=== PATIENT | male | born 1990 | race Caucasian/White ===

== ENCOUNTER 2016-09-08 09:34 | Emergency (ER) | payer OTHER ==
[~2016-09-08] VITALS: Ht 185.4 cm; Wt 99.8 kg
[2016-09-08 09:39] VITALS: TEMP 36.5; Ht 185.4 cm; Wt 99.8 kg
[2016-09-08] MEDS ORDERED: TYLOTC500 PO (09:50)
[2016-09-08] MEDS ORDERED: ONDANSETRON INJ 2 MG/ML 2 ML VIAL IV STA (10:09)
[2016-09-08] MEDS ORDERED: SODIUM CHLORIDE 0.9% 1000ML 1,000 ML IV STA (10:09)
--- NOTE | 2016-09-08 10:14 | EMERGENCY ROOM VISIT NOTE ---
History Report prepared by Jovanny: Dante Drake Under the Supervision of: Dr. Edilberto Jerez D.O. First contact with patient: 09:52 Chief Complaint: RECTAL BLEEDING Stated Complaint: TINGLY, TUNNEL VISION, SPEAKING DIFFICULTIES, DIZZ Nursing Triage Summary: Pt to triage in , pt was able to walk to chair scale, denies weakness, c/o blood in stool, red in color, felt dizzy while having BM, got worse when he stood up. States he had abdominal pain prior to BM, denies pain at this time. History of Present Illness The patient is a 26 year old male who presents to the Emergency Room with complaints of an episode of rectal bleeding that occurred prior to arrival today. He says that he felt fine before going to the bathroom this morning other than a bit of tenseness in his chest. The patient proceeded to have a bowel movement, with blood in his stool. He then stood up, and got very lightheaded. He was numb in his arms and face. He had a dry mouth and also felt nauseous. The patient notes that walking was difficult. He says that it felt like when someone stands up too fast but longer. The patient states that his stomach has been a bit upset, and the bowel movement was large. He did not think there was a tear. He denies any leg pain or swelling, or any recent rectal trauma. He has no chronic medical problems and never had any surgeries. The patient says that he passed out once from dehydration from a hard football practice. He occasionally drinks alcohol and occasionally smokes. Source of History: patient Onset: Prior to arrival today Position: other (rectum) Quality: other (bleeding) Timing: other (episode) Associated Symptoms: + nausea, + numbness (arms/face) Note: Associated symptoms: Chest tenseness, lightheadedness, dry mouth, tunnel vision. Denies leg pain or swelling, or recent rectal trauma. Review of Systems See HPI for pertinent positives & negatives. A total of 10 systems reviewed and were otherwise negative. Past Medical & Surgical Medical Problems: (1) No chronic problems (2) Syncope Family History Cancer Heart disease Hypertension Lung disease Social History Smoking Status: Current Every Day Smoker Alcohol Use: occasionally Occupation Status: employed Current/Historical Medications Scheduled Acetaminophen (Tylenol), 500 MG PO UD Allergies Coded Allergies: No Known Allergies (Unverified , 09/08/16) Physical Exam Vital Signs Date Time Temp Pulse Resp B/P Pulse Ox O2 Delivery O2 Flow Rate FiO2 09/08/16 12:19 86 18 124/69 97 Room Air 09/08/16 11:04 98 Room Air 09/08/16 10:50 74 16 120/70 78 142/92 83 160/90 09/08/16 09:39 36.5 87 18 131/80 98 Room Air Physical Exam GENERAL: Patient is awake, alert, and in no acute distress. Patient is resting comfortably and showing no signs of anxiety EYES: The conjunctivae are clear. The pupils are round and reactive. EARS, NOSE, MOUTH AND THROAT: The nose is without any evidence of any deformity. Mucous membranes are dry tongue is midline NECK: The neck is nontender and supple. RESPIRATORY: Normal respiratory effort is noted there is no evidence of wheezing rhonchi or rales CARDIOVASCULAR: Regular rate and rhythm noted there no murmurs rubs or gallops normal S1 normal S2 GASTROINTESTINAL: The abdomen is soft. Bowel sounds are present in all quadrants. Abdomen is nontender. Rectal exam revealed brown stool heme negative , no obvious fissures or hemorrhoids which were bleeding. MUSCULOSKELETAL/EXTREMITIES: There is no evidence of gross deformity full range of motion is noted in the hips and shoulders SKIN: There is no obvious evidence of any rash. There are no petechiae, pallor or cyanosis noted. NEUROLOGIC: Patient is awake alert and oriented x3 strength is symmetric patellar reflexes are 2+ bilaterally Medical Decision & Procedures ER Provider Diagnostic Interpretation: X-ray results as stated below per interpretation by me and the radiologist. CHEST ONE VIEW PORTABLE CLINICAL HISTORY: EVALUATE ALTERED MENTAL STATUS/WEAKNESS dyspnea COMPARISON STUDY: None FINDINGS: The bones soft tissues and hemidiaphragms are normal. The cardiomediastinal silhouette is normal. The lungs are clear. The pulmonary vasculature is normal. IMPRESSION: Negative chest. Electronically signed by: Jose Lugo M.D. 09/08/2016 10:31 AM Dictated Date/Time: 09/08/2016 10:30 AM Laboratory Results 09/08/16 10:30 Red Blood Count 5.07, Mean Corpuscular Volume 90.3, Mean Corpuscular Hemoglobin 31.8, Mean Corpuscular Hemoglobin Concent 35.2, Mean Platelet Volume 10.4, Neutrophils (%) (Auto) 66.7, Lymphocytes (%) (Auto) 24.9, Monocytes (%) (Auto) 7.4, Eosinophils (%) (Auto) 0.6, Basophils (%) (Auto) 0.3, Neutrophils # (Auto) 4.57, Lymphocytes # (Auto) 1.71, Monocytes # (Auto) 0.51, Eosinophils # (Auto) 0.04, Basophils # (Auto) 0.02 09/08/16 10:30 Test 09/08/16 10:30 White Blood Count 6.86 K/uL (4.8-10.8) Red Blood Count 5.07 M/uL (4.7-6.1) Hemoglobin 16.1 g/dL (14.0-18.0) Hematocrit 45.8 % (42-52) Mean Corpuscular Volume 90.3 fL (80-100) Mean Corpuscular Hemoglobin 31.8 pg (25-34) Mean Corpuscular Hemoglobin Concent 35.2 g/dl (32-36) Platelet Count 263 K/uL (130-400) Mean Platelet Volume 10.4 fL (7.4-10.4) Neutrophils (%) (Auto) 66.7 % Lymphocytes (%) (Auto) 24.9 % Monocytes (%) (Auto) 7.4 % Eosinophils (%) (Auto) 0.6 % Basophils (%) (Auto) 0.3 % Neutrophils # (Auto) 4.57 K/uL (1.4-6.5) Lymphocytes # (Auto) 1.71 K/uL (1.2-3.4) Monocytes # (Auto) 0.51 K/uL (0.11-0.59) Eosinophils # (Auto) 0.04 K/uL (0-0.5) Basophils # (Auto) 0.02 K/uL (0-0.2) RDW Standard Deviation 41.4 fL (36.4-46.3) RDW Coefficient of Variation 12.6 % (11.5-14.5) Immature Granulocyte % (Auto) 0.1 % Immature Granulocyte # (Auto) 0.01 K/uL (0.00-0.02) Prothrombin Time 11.0 SECONDS (9.0-12.0) Prothromb Time International Ratio 1.0 (0.9-1.1) Activated Partial Thromboplast Time 30.9 SECONDS (21.0-31.0) Partial Thromboplastin Ratio 1.2 Anion Gap 7.0 mmol/L (3-11) Est Creatinine Clear Calc Drug Dose 157.3 ml/min Estimated GFR () 138.1 Estimated GFR (Non- 119.1 BUN/Creatinine Ratio 12.6 (10-20) Calcium Level 9.0 mg/dl (8.5-10.1) Magnesium Level 2.3 mg/dl (1.8-2.4) Total Bilirubin 0.7 mg/dl (0.2-1) Direct Bilirubin mg/dl (0-0.2) Aspartate Amino Transf (AST/SGOT) 12 U/L (15-37) Alanine Aminotransferase (ALT/SGPT) 24 U/L (12-78) Alkaline Phosphatase 68 U/L (45-117) Total Creatine Kinase 131 U/L (39-308) Creatine Kinase MB 1.2 ng/ml (0.5-3.6) Creatine Kinase MB Ratio 0.9 (0-3.0) Troponin I < 0.015 ng/ml (0-0.045) Total Protein 7.2 gm/dl (6.4-8.2) Albumin 4.3 gm/dl (3.4-5.0) Thyroid Stimulating Hormone (TSH) 0.892 uIu/ml (0.300-4.500) Chemistry Specimen Hemolysis Laboratory results per my review. Medications Administered Medications (Trade) Dose Ordered Sig/Kofi Route Start Time Stop Time Status Last Admin Dose Admin Sodium Chloride (Nss 1000ml) 1,000 ml @ 999 mls/hr Q1H1M STAT IV 09/08/16 10:09 09/08/16 11:09 DC 09/08/16 10:40 999 MLS/HR Ondansetron HCl (Zofran Inj) 4 mg NOW STAT IV 09/08/16 10:09 09/08/16 10:11 DC 09/08/16 10:48 4 MG ECG Indication: other (dizziness) Rate (beats per minute): 72 Rhythm: normal sinus Findings: no ectopy, other (incomplete RBBB, no acute ST segment abnormalities) Comparison ECG Date: no prior available ED Course 1001: The patient was evaluated in room A2. A complete history and physical examination were performed. 1009: Ordered Zofran Inj 4 mg IV, NSS 1000 ml @ 999 mls/hr IV. 1133: Upon reevaluation, the patient is resting comfortably. I discussed the results and treatment plan with him. He verbalized agreement of the treatment plan. He was discharged home. Medical Decision Differential diagnosis: Etiologies such as vasovagal event, infection, hypoglycemia, electrolyte abnormalities, cardiac sources, intracerebral event, toxicologic, neurologic, as well as others were entertained. Nursing notes reviewed. The patient is a 26-year-old male who presented to the emergency department after a near syncopal episode. The patient was having a rather large bowel movement and then noticed some blood in the toilet. He then started to have what was described as a near syncopal episode or he develop tunnel vision numbness across the arms and felt as though he might pass out. The patient's rectal exam did not reveal any definite source for the bleeding although he did have a small hemorrhoid which was not actively bleeding. His stool was heme- negative. The patient did not have any focal neurologic deficits. He had no meningismus. The patient had normal sounding heart tones to my auscultation. I discussed the patient's laboratory radiographic studies with him. He was treated with IV fluids in the emergency department. On subsequent reevaluation he was feeling much better. At this time I feel he may have had a vasovagal episode after seeing the rectal bleeding it may have been exacerbated by having the large bowel movement. He was encouraged to rest and avoid any strenuous activity. He was also encouraged to call his family doctor to schedule a follow- up appointment. I did recommend further studies such as an echocardiogram and a Holter monitor. He was also encouraged to start a [id number] stool softener such as Colace. He was also encouraged return to emergency department immediately if symptoms change worsen or the need arises. Impression Primary Impression: Near syncope Additional Impressions: Constipation Rectal bleeding Scribe Attestation The scribe's documentation has been prepared under my direction and personally reviewed by me in its entirety. I confirm that the note above accurately reflects all work, treatment, procedures, and medical decision making performed by me. Departure Information Dispostion Home / Self-Care Referrals No Doctor, Assigned (PCP) Forms HOME CARE DOCUMENTATION FORM, IMPORTANT VISIT INFORMATION, WORK / SCHOOL INSTRUCTIONS Patient Instructions Bleeding Rectal Evaluate Treat, ED Near Syncope Unkn, My [facility] Additional Instructions Call your family to schedule a follow-up appointment. Rest and avoid any strenuous activity. I would recommend further studies such as an echocardiogram or a Holter monitor to further evaluate the cause of urinary syncope. I would recommend starting an [id number] stool softener. Return to the emergency department immediately if symptoms change worsen or the need arises. Problem Qualifiers Additional Impressions: Constipation Constipation type: unspecified constipation type Qualified Codes: K59.00 - Constipation, unspecified
--- NOTE | 2016-09-08 10:34 | DIAGNOSTIC IMAGING REPORT ---
CHEST ONE VIEW PORTABLE CLINICAL HISTORY: EVALUATE ALTERED MENTAL STATUS/WEAKNESS dyspnea COMPARISON STUDY: None FINDINGS: The bones soft tissues and hemidiaphragms are normal. The cardiomediastinal silhouette is normal. The lungs are clear. The pulmonary vasculature is normal. IMPRESSION: Negative chest. Electronically signed by: Jose Lugo M.D. 09/08/2016 10:31 AM Dictated Date/Time: 09/08/2016 10:30 AM
[2016-09-08 10:48] LABS: BASO % 0.3 %; BASO ABS # 0.02 K/uL (0-0.2); COMPLETE YES; EOS % 0.6 %; HEMATOCRIT 45.8 % (42-52); IG% 0.1 %; LYMPH % 24.9 %; LYMPH ABS # 1.71 K/uL (1.2-3.4); MEAN CELL VOLUME 90.3 fL (80-100); MEAN CORPUSCULAR HEMOGLOBIN 31.8 pg (25-34); MEAN CORPUSCULAR HGB CONC 35.2 g/dl (32-36); MEAN PLATELET VOLUME 10.4 fL (7.4-10.4); MONO % 7.4 %; NEUT % 66.7 %; PLATELET COUNT 263 K/uL (130-400); RED BLOOD COUNT 5.07 M/uL (4.7-6.1); WHITE BLOOD COUNT 6.86 K/uL (4.8-10.8)
[2016-09-08 10:55] LABS: PARTIAL THROMBOPLASTIN RATIO 1.2
[2016-09-08 11:04] VITALS: O2SAT 98
[2016-09-08 11:29] LABS: ALKALINE PHOSPHATASE 68 U/L (45-117); ALT/SGPT 24 U/L (12-78); AST/SGOT 12 U/L (15-37); BLOOD UREA NITROGEN 11 mg/dl (7-18); BUN/CREATININE RATIO 12.6 (10-20); CARBON DIOXIDE 29 mmol/L (21-32); CHLORIDE 106 mmol/L (98-107); CKMB/CK RATIO 0.9 (0-3.0); GLUCOSE 83 mg/dl (70-99); MAGNESIUM 2.3 mg/dl (1.8-2.4); POTASSIUM 4.1 mmol/L (3.5-5.1); SODIUM 142 mmol/L (136-145); THYROID STIMULATING HORMONE 0.892 uIu/ml (0.300-4.500)
[2016-09-08 12:19] VITALS: BP 124/69; PULSE 86; O2SAT 97
== END 2016-09-08 12:20 | disposition home or self-care (01) ==
LOC: C.EDB 09:38 → C.EDA 12:20
DX: R55 Syncope and collapse (principal); K59.00 Constipation, unspecified; K62.5 Hemorrhage of anus and rectum; Z80.9 Family history of malignant neoplasm, unspecified; Z82.49 Family history of ischemic heart disease and other diseases of the circulatory system; Z83.6 Family history of other diseases of the respiratory system; F17.210 Nicotine dependence, cigarettes, uncomplicated

== ENCOUNTER → 2016-12-08 | Outpatient (CLI) | payer OTHER ==
[~2016-12-08] MED LIST: TYLOTC500 PO
--- NOTE | 2016-12-08 17:51 | ECHOCARDIOGRAM REPORT ---
*NOTICE TO RECEIVING [employer] This information is strictly Confidential and protected under [place] law. [place] law prohibits you from making any further disclosure of this information unless further disclosure is expressly permitted by the written consent of the person to whom it pertains or is authorized by law. A general authorization for the release of medical or other information is not sufficient for this purpose. Hospital accepts no responsibility if the information is made available to any other person, INCLUDING THE PATIENT. Interpretation Summary * Name: LUCIE SCHAFFER Study Date: 12/08/2016 01:23 PM BP: 142/70 mmHg * Patient Location: [facility] HR: 102 * : 1990 (M/d/yyyy) Gender: Male Height: 74 in * Age: 26 yrs Ethnicity: [place] Weight: 223 lb * Ordering Physician: Norma Barton * Referring Physician: Norma Barton D.O. * Performed By: [facility] * * Reason For Study: PALPITATIONS * BSA: 2.3 m2 * Normal biventricular systolic function. * Normal chamber dimensions. * No significant valve abnormalities. Procedure Details * A complete two-dimensional transthoracic echocardiogram was performed (2D, M-mode, Doppler and color flow Doppler). Left Ventricle * The left ventricle is normal in size. * There is mild concentric left ventricular hypertrophy. * Ejection Fraction = 55-60%. * Left ventricular systolic function is normal. * The left ventricular wall motion is normal. Right Ventricle * The right ventricle is normal in size and function. Atria * The left atrial size is normal. * Right atrial size is normal. * No ASD detected; PFO is not assessed. Mitral Valve * The mitral valve is normal. * There is no mitral valve stenosis. * There is no mitral regurgitation noted. Tricuspid Valve * The tricuspid valve is normal. * There is no tricuspid stenosis. * There is trace tricuspid regurgitation. Aortic Valve * The aortic valve is trileaflet. * The aortic valve opens well. * Aortic stenosis is absent. * No aortic regurgitation is present. Pulmonic Valve * The pulmonic valve is not well seen, but is grossly normal. * There is no pulmonic valvular stenosis. * Trace pulmonic valvular regurgitation. Pericardium/Pleural * There is no pericardial effusion. Great Vessels * Normal inferior vena cava diameter and respiratory variation suggests normal central venous pressure. MMode 2D Measurements and Calculations IVSd 1.2 cm IVSs 1.6 cm LVIDd 3.9 cm LVIDs 2.7 cm LVPWd 1.2 cm LVPWs 1.3 cm IVS/LVPW 1.0 FS 31.1 % EDV(Teich) 65.7 ml ESV(Teich) 26.6 ml EF(Teich) 59.5 % EDV(cubed) 59.1 ml ESV(cubed) 19.3 ml EF(cubed) 67.3 % % IVS thick 33.8 % % LVPW thick 9.6 % LV mass(C)d 156.0 grams LV mass(C)dI 68.5 grams/m\S\2 LV mass(C)s 128.1 grams LV mass(C)sI 56.3 grams/m\S\2 SV(Teich) 39.1 ml SI(Teich) 17.2 ml/m\S\2 SV(cubed) 39.8 ml SI(cubed) 17.5 ml/m\S\2 Ao root diam 3.3 cm Ao root area 8.6 cm\S\2 ACS 1.9 cm LA dimension 2.7 cm LA/Ao 0.82 LVOT diam 2.0 cm LVOT area 3.3 cm\S\2 LVAd ap4 28.5 cm\S\2 LVLd ap4 7.3 cm EDV(MOD-sp4) 91.6 ml EDV(sp4-el) 95.1 ml LVAs ap4 18.4 cm\S\2 LVLs ap4 6.5 cm ESV(MOD-sp4) 44.1 ml ESV(sp4-el) 44.5 ml EF(MOD-sp4) 51.9 % EF(sp4-el) 53.2 % LVAd ap2 29.7 cm\S\2 LVLd ap2 7.6 cm EDV(MOD-sp2) 94.4 ml EDV(sp2-el) 98.3 ml LVAs ap2 16.9 cm\S\2 LVLs ap2 5.7 cm ESV(MOD-sp2) 39.9 ml ESV(sp2-el) 42.3 ml EF(MOD-sp2) 57.8 % EF(sp2-el) 56.9 % LVLd %diff 4.4 % EDV(MOD-bp) 95.2 ml LVLs %diff -12.83 % ESV(MOD-bp) 42.0 ml EF(MOD-bp) 55.9 % SV(MOD-sp4) 47.5 ml SI(MOD-sp4) 20.9 ml/m\S\2 SV(MOD-sp2) 54.5 ml SI(MOD-sp2) 23.9 ml/m\S\2 SV(MOD-bp) 53.2 ml SI(MOD-bp) 23.4 ml/m\S\2 SV(sp4-el) 50.6 ml SI(sp4-el) 22.2 ml/m\S\2 SV(sp2-el) 56.0 ml SI(sp2-el) 24.6 ml/m\S\2 Doppler Measurements and Calculations MV E max vanessa 85.7 cm/sec MV A max vanessa 76.6 cm/sec MV E/A 1.1 MV P1/2t max vanessa 104.8 cm/sec MV P1/2t 47.2 msec MVA(P1/2t) 4.7 cm\S\2 MV dec slope 650.6 cm/sec\S\2 MV dec time 0.19 sec Ao V2 max 130.7 cm/sec Ao max PG 6.8 mmHg Ao max PG (full) 0.57 mmHg ED(V,A) 3.1 cm\S\2 ED(V,D) 3.1 cm\S\2 LV V1 max PG 6.3 mmHg LV V1 max 125.1 cm/sec PA V2 max 107.1 cm/sec PA max PG 4.6 mmHg PI max vanessa 138.9 cm/sec PI max PG 7.7 mmHg PI dec slope 217.3 cm/sec\S\2 PI P1/2t 187.2 msec
== END | disposition home or self-care (01) ==
LOC: C.CPL 12:19
PROVIDERS: ATTEND Family Medicine
DX: R00.2 Palpitations (principal)